=== PATIENT | female | born 1930 | race Caucasian/White ===

== ENCOUNTER 2017-06-04 22:29 | Inpatient (IN) ==
[2017-06-04] MEDS ORDERED: NS 500 ML IV ONE (22:55)
--- NOTE | 2017-06-04 23:16 | PROVIDER DOCUMENTATION ---
HPI-General Adult - General Chief Complaint: Weakness Stated Complaint: sudden onset weakness Time Seen by Provider: 06/04/17 22:35 Source: EMS Unable to obtain history due to:: altered Allergies/Adverse Reactions: Patient Allergies Allergy/AdvReac Type Severity Reaction Status Date / Time No Known Allergies Allergy Verified 06/04/17 23:41 Home Medications: Home Medication List Medication Instructions Recorded Confirmed Last Taken Type Buspirone [Buspar] 10 mg PO BID 12/25/14 08/13/16 04/29/15 18:00 History Donepezil [Aricept] 10 mg PO QHS 12/25/14 08/13/16 07/18/15 History Gabapentin 100 mg PO QHS 12/25/14 08/13/16 07/18/15 History Metoclopramide HCl [Reglan] 5 mg PO BID 12/25/14 08/13/16 07/19/15 06:00 History Duloxetine [Cymbalta] 60 mg PO DAILY #0 02/02/15 08/13/16 07/19/15 06:00 Rx Trospium Chloride 20 mg PO BID 07/19/15 08/13/16 07/19/15 06:00 History Quetiapine [Seroquel] 12.5 mg PO QHS #0 tablet 07/24/15 08/13/16 Unknown Rx Pantoprazole [Protonix] 40 mg PO DAILY@0700 06/15/16 08/13/16 Unknown History Tamsulosin HCl 0.4 mg PO QHS 06/15/16 08/13/16 Unknown History ATORVAstatin [Lipitor] 80 mg PO QHS #0 tablet 06/19/16 08/13/16 Unknown Rx Clopidogrel [Plavix] 75 mg PO DAILY #0 tablet 06/19/16 08/13/16 Unknown Rx - History of Present Illness -Gen Adult Nature of Presenting Problems: PER EMS REPORT, PT WITH INCREASING WEAKNESS STARTING TODAY. SON WAS AT HOME WITH PT, STATED PT USUALLY GETS AROUND WITH WALKER BUT TODAY HAS BEEN UNABLE. HX OF DEMENTIA. PT DENIES ANY PAIN OR COMPLAINTS, NO FAMILY AVAILABLE AT PRESENT IN ER TO CONFIRM HX OR CURRENT PROBLEMS. Location of Pain/Injury: reports: none Review of Systems - Adult - REVIEW OF SYSTEMS - ADULT ROS:: limited per condition Constitutional: reports: no symptoms reported. denies: fever Eyes: reports: no symptoms reported Ears, Nose, Mouth & Throat: reports: no symptoms reported Cardiovascular: reports: no symptoms reported. denies: chest pain Respiratory: reports: no symptoms reported. denies: shortness of breath Gastrointestinal: reports: no symptoms reported. denies: diarrhea, vomiting Genitourinary: reports: no symptoms reported Musculoskeletal: reports: see HPI, muscle weakness Integumentary: reports: no symptoms reported Neurological: reports: no symptoms reported Psychiatric: reports: no symptoms reported Endocrine: reports: no symptoms reported Hematologic/Lymphatic: reports: no symptoms reported Allergic/Immunologic: reports: no symptoms reported All Other Systems: Reviewed and Negative Past History - Adult - PAST MEDICAL HISTORY-ADULT Review of Records: reports: Nursing Assessment Review, Medications Reviewed, Social history reviewed & non-contributory. Major Childhood Illnesses: reports: denies history Cardiovascular: reports: CAD, HTN, hyperlipidemia, MD Gastrointestinal: reports: GERD Musculoskeletal: reports: other (NEUROPATHY) Neurological: reports: CVA, dementia Psychiatric: reports: depression - PRIOR SURGERIES/PROCEDURES Surgical/Procedure History: reports: hysterectomy, tonsillectomy, orthopedic ( extremity) - IMMUNIZATION STATUS Childhood Immunizations: See Nurse Assessment Flu Vaccine: See Nurse Assessment - FAMILY HISTORY Family History: reviewed, not pertinent Physical Exam-General - PHYSICAL EXAM-ADULT Initial Vital Signs Reviewed: Yes - CONSTITUTIONAL General Appearance: alert, no apparent distress, cachetic - EYES Eyes: other (PINPOINT PUPILS) - HEAD, EARS, NOSE, MOUTH & THROAT HENMT: negative: moist mucous membranes (DRY) - RESPIRATORY Respiratory: lungs clear, normal breath sounds - CARDIOVASCULAR Cardiovascular: regular rate, rhythm - GASTROINTESTINAL (ABDOMEN) Abdominal Exam: non tender, soft. negative: distended, guarding - MUSCULOSKELETAL Extremity: non-tender, normal inspection, normal capillary refill - SKIN Integumentary: normal color, warm/dry. negative: normal turgor (POOR) - NEUROLOGIC Neurologic: grossly normal. negative: aphasia, facial droop - PSYCHIATRIC Psych/Mental Status: normal mood/affect, disoriented x 3 (ORIENTED TO SELF ONLY) Progress - PLAN OF CARE/RESULTS Progress/Plan/Lab Results: Vital Signs - 8 hr 06/04/17 22:43 06/04/17 22:46 Temperature 98.4 F Pulse Rate 59 L 62 Respiratory Rate 16 31 H Blood Pressure 133/61 133/61 O2 Sat by Pulse Oximetry 97 97 Orders Category Date Time Status Cardiac Monitoring DIRECTED Care 06/04/17 22:53 Active Saline Loc NOW Care 06/04/17 22:53 Active CHEST-PORTABLE [RAD] Stat Exams 06/04/17 22:53 Ordered CBC WITH ELECTRONIC DIFF [HEME] Stat Lab 06/04/17 22:53 Uncollected CK PROFILE [SP CHEM] Stat Lab 06/04/17 22:53 Uncollected COMPREHENSIVE METABOLIC PANEL [CHEM] Stat Lab 06/04/17 22:53 Uncollected LACTATE, PLASMA [CHEM] Stat Lab 06/04/17 22:53 Uncollected PROTIME WITH INR [COAG] Stat Lab 06/04/17 22:53 Uncollected PTT [COAG] Stat Lab 06/04/17 22:53 Uncollected TROPONIN T Stat Lab 06/04/17 22:53 Uncollected URINALYSIS W/POSS RFLX CULT-1 [URINALYSIS] Stat Lab 06/04/17 22:53 Uncollected 0.9% Sodium Chloride Inj [Ns] 500 ml Med 06/04/17 22:55 Active IV 999 mls/hr Pulse Oximetry Stat Oth 06/04/17 22:53 Active EKG [EKG] Stat Ther 06/04/17 22:53 Ordered DISCUSSED PT HX, EXAM, AND LABS WITH DR. RAM WHO ADVISES TO D/C HOME. Result Diagrams: 06/04/17 23:35 06/04/17 23:35 - XRAY 1 XRAY Study: Chest Impression: Normal Comparison with other Films: no changes XRAY Interpretation: NO ACUTE CHANGES PER DR. RAM Departure - Departure Date of Disposition Decision: 06/05/17 Time of Disposition Decision: 01:05 DIAGNOSIS: Weakness generalized Disposition: ADMITTED INPATIENT 09 Certified Medical Emergency: Emergent Condition: Good Additional Freetext Instructions: FOLLOW-UP WITH YOUR PRIMARY CARE PROVIDER TOMORROW. ED Follow Up Instructions: You have been treated by a care provider in the Emergency Department. These instructions are being provided to you so you can have an understanding of how to care for yourself upon discharge. Upon discharge from the Emergency Department, you are responsible for making arrangements for follow-up care by a physician of your choice. Take all prescribed medications as directed. Return to the Emergency Department immediately for any new or worsening symptoms. You may call the Physician Referral phone number at [phone] to obtain a list of Physicians who are taking new patients. Referrals and Follow-Ups: Tali Enrst MD [ACTIVE STAFF PHYSICIAN] - - Critical Care Note This patient required my direct & personal management of CC.: No Attestation - Physician/ ANDERSON Attestation Patient care was provided by Advanced Practice Provider:: Yes Advanced Practice Provider:: Riri Walton Advanced Practice Provider documentation review:: The Mid-level provider documentation, treatment plan and medical decision making was reviewed by the physician who agrees with all treatment and medical decision making by the MLP. The physician spent face to face time with patient:: No Advanced Practice Provider documentation review:: Supervising physician onsite and consulted in the evaluation and care of this patient. The physician did not have a face to face encounter with the patient.
[2017-06-04 23:48] LABS: MANUAL DIFF NEEDED? NO
[2017-06-04 23:55] LABS: BASO% 0.3 % (0.0-0.8); EOS# 0.13 X1000 (0.0-0.7); EOS% 1.8 % (0.0-10.0); HEMATOCRIT 40.3 % (37.0-47.0); HEMOGLOBIN 13.5 g/dL (12.0-16.0); IMM GRAN# 0.02 X1000 (0.0-0.04); IMM GRAN% 0.3 % (0.0-0.5); LYMPH# 1.76 X1000 (1.2-3.4); LYMPH% 24.9 % (20.5-51.1); MCH 31.6 PG (27-31); MCHC 33.5 g/dL (33-37); MCV 94.4 FL (81-99); MONO# 0.84 X1000 (0.11-0.59); MONO% 11.9 % (1.7-9.3); MPV 11.9 FL (7.4-10.4); NEUT% 60.8 % (42.2-75.2); PLT 235 X1000 (130-400); RBC 4.27 XMIL (4.2-5.4)
[2017-06-05 00:06] LABS: INR 1.07; PROTIME 11.3 Seconds (9.2-11.7); PTT 24.6 Seconds (22.0-36.0)
[2017-06-05 00:17] LABS: AGAP 14; ALBUMIN 3.5 g/dL (3.5-5.0); ALKALINE PHOSPHATASE 111 U/L (32-104); BUN 16 mg/dL (8-22); CALCIUM 9.6 mg/dL (8.8-10.2); CHLORIDE 106 mmol/L (98-107); CK PROFILE 75 U/L (24-173); COSMO 285; GOT 13 U/L (10-30); GPT 11 U/L (10-36); POTASSIUM 3.5 mmol/L (3.5-5.1); SODIUM 143 mmol/L (136-145); TCO2 23 mmol/L (25-35); TOTAL BILIRUBIN 0.38 mg/dL (0.20-1.00); TOTAL PROTEIN 5.9 g/dL (6.3-8.3)
[2017-06-05 00:36] LABS: URINE CULTURE NEEDED? NO; URINE MICRO REVIEW NEEDED? NO; URINE SOURCE CATH
[2017-06-05 00:38] LABS: BILIRUBIN URINE NEGATIVE (NEGATIVE); BLOOD URINE NEGATIVE (NEGATIVE); COLOR YELLOW; GLUCOSE URINE NEGATIVE (NEGATIVE); LEUKOCYTES URINE NEGATIVE (NEGATIVE); NITRITE URINE NEGATIVE (NEGATIVE); PH URINE 6.5; PROTEIN URINE TRACE mg/dL (NEGATIVE); SP GRAVITY URINE 1.016; TURBIDITY URINE CLEAR (CLEAR); UROBILINOGEN URINE NORMAL (NORMAL)
[2017-06-05 00:39] LABS: UR EPITHELIAL CELLS <10 /HPF (<10); URINE BACTERIA NEGATIVE /HPF; URINE RBC <10 /HPF (<10); URINE WBC <10 /HPF (<10)
--- NOTE | 2017-06-05 01:34 | ED EKG INTERP ---
This chart was entered by Angely Balbuena Scribe, acting as scribe for Stephen Zarate MD. EKG Interpretation - EKG Time of EKG reading by physician:: 23:05 EKG Read and Signed by:: Stephen Zarate EKG Interpretation (*Must complete 3 of following elements*): Normal Rate: 61 Rhythm: NSR Comments: Abnormal ECG, Prolonged QT Attestation - Physician/ ANDERSON Attestation The physician spent face to face time with patient:: Yes Advanced Practice Provider documentation review:: Supervising physician onsite and consulted in the evaluation and care of this patient. The physician did have a face to face encounter with the patient. This chart was documented by the indicated scribe, (Angely Balbuena Scribe) and accurately reflects the services I performed and decisions made by me, Stephen Zarate MD, as attested by the provider's signature.
[2017-06-05] MEDS ORDERED: ZOFRAN IV PRN (03:02)
[2017-06-05] MEDS: NS 1,000 ML IV SCH (04:39)
--- NOTE | 2017-06-05 05:39 | HISTORY AND PHYSICAL ---
PRIMARY CARE PHYSICIAN: Unknown. CHIEF COMPLAINT: Weakness. HISTORY OF PRESENTING ILLNESS: An 87-year-old elderly female with a history of dementia, hypertension, CVA, GERD and coronary artery disease was brought to the emergency department by her son due to patient having worsening weakness. At the time of my examination, there were no family members around. The patient was not really verbal and very hard of hearing. Most of the history is obtained from previous medical records. At the current time as discussed, patient is a poor historian. PAST MEDICAL HISTORY: Includes dementia, hypertension, CVA, GERD and coronary artery disease. PAST SURGICAL HISTORY: Coronary bypass and L2 kyphoplasty. ALLERGIES: No known drug allergies. CURRENT MEDICATIONS: As listed in the medication reconciliation sheet. SOCIAL HISTORY: Patient lives with her son. No history of smoking, alcohol or illicit drug use. FAMILY HISTORY: No history of coronary disease. REVIEW OF SYSTEMS: Unable to obtain due to patient's current status. PHYSICAL EXAMINATION: GENERAL: Frail ill-looking elderly female. She is without any respiratory distress. VITAL SIGNS: Temperature 98.3 degrees, pulse 91, respirations 17 and blood pressure 131/62. HEENT: Atraumatic, normocephalic. PERRLA. NECK: No masses. CHEST: Clear to auscultation. CARDIOVASCULAR: Regular rate and rhythm. ABDOMEN: Soft. Positive bowel sounds. EXTREMITIES: No edema. NEUROLOGIC: She is awake and arousable. : No bladder distention. SKIN: Decubitus on her sacral region. LABORATORIES AND STUDIES: WBC's 7.08, hemoglobin 13.5, hematocrit 40.3, platelets 235,000. Sodium 143, potassium 3.5, chloride 106, CO2 23, BUN 16, creatinine 0.8, glucose 86. Plasma lactate 0.02. Urine negative for nitrites. Negative for bacteria. ASSESSMENT: An 87-year-old elderly frail woman with a history of dementia, hypertension, CVA, GERD and coronary artery disease who was brought to the emergency department due to worsening weakness. Due to her present condition, she will need admission for further management. 1. Generalized weakness. 2. Failure to thrive. 3. Sacral decubitus stage 2. 4. Dementia. 5. Hypertension. PLAN: 1. We will admit patient to medical floor with telemetry. 2. Continue supportive treatment with gentle hydration. 3. We will continue with the wound care for decubitus. 4. We will restart her home medications. 5. Monitor blood pressure closely. 6. We will put patient on DVT prophylaxis and SCD's. 7. We will consult social service for assessment with possible placement. 8. We will continue to follow and reassess. cc: Manuel Maravilla MD
--- NOTE | 2017-06-05 06:52 | EKG Report ---
Test Performed on : 06/04/2017 11:05:23 PM Test Reason : AMS Blood Pressure : / mmHG Vent. Rate : 061 BPM Atrial Rate : 061 BPM P-R Int : 164 ms QRS Dur : 082 ms QT Int : 478 ms P-R-T Axes : 043 -21 242 degrees QTc Int : 481 ms Normal sinus rhythm. ST \T\ T wave abnormality, consider anterolateral ischemia Prolonged QT Abnormal ECG When compared with ECG of 14-AUG-2016 07:09, Vent. rate has decreased BY 35 BPM Nonspecific T wave abnormality now evident in Inferior leads T wave inversion now evident in Lateral leads Unconfirmed Result
--- NOTE | 2017-06-05 07:27 | Diag Imaging Result Doc PS360 ---
CHEST-PORTABLE - 06/04/2017 INDICATION: AMS TECHNIQUE: COMPARISON: 08/13/2016 FINDINGS: The lungs are normally expanded and clear. Heart size and mediastinal contours are normal. No pneumothorax or pleural effusion. IMPRESSION: Negative exam. Electronically signed by Yousif Sawyer 06/05/2017 7:25 AM
[2017-06-05] MEDS: PLAVIX PO SCH (08:30)
[2017-06-05] MEDS: PROTONIX PO SCH (08:30)
[2017-06-05] MEDS: BUSPAR PO SCH ×2 (08:30→23:14)
[2017-06-05] MEDS: CYMBALTA PO SCH (08:30)
[2017-06-05] MEDS: REGLAN PO SCH ×2 (08:30→23:14)
--- NOTE | 2017-06-05 20:44 | PROGRESS NOTE ---
DATE: 06/05/2017 Briefly 87-year-old female with looks like significant dementia comes in for failure to thrive essentially. She has had progressive weakness, not sure where she came in from home, I do not know how she has been managing self-care because she is significantly demented. She apparently has a significant decubitus ulcer. We will continue to monitor her and support her. No evidence of urinary tract infection or any major metabolic abnormality. She has not gotten a head CT with her confusion so I am going to go ahead and repeat that. Her chest x-ray is negative. Obviously she cannot take care of herself and she is a high fall risk. She has decubitus already so she will likely need some sort of long-term care. We are going to work on establishing that if possible. I will check 2nd order, altered mental status labs to evaluate for any other pathology. cc: Marky Cespedes MD
--- NOTE | 2017-06-05 22:09 | Diag Imaging Result Doc PS360 ---
EXAM: CT HEAD W/O CONTRAST INDICATION: encephalopathy TECHNIQUE: Dose reduction protocol was used. COMPARISON: 08/13/2016 FINDINGS: There is diffuse brain atrophy. There is extensive patchy low attenuation in the periventricular and subcortical white matter suggesting advanced microangiopathy, stable. There is stable focal encephalomalacia involving the left occipital lobe. There is no definite acute infarct given the limited sensitivity of CT versus MRI. There is no discrete intracranial mass, mass effect, or intracranial hemorrhage. There is chronic left maxillary sinusitis that is stable with subtotal opacification of the left maxillary sinus. Surrounding soft tissues and bony structures are essentially unremarkable, otherwise. IMPRESSION: Advanced chronic changes that are stable but no definite acute intracranial pathology. Electronically signed by Darion Jonas 06/05/2017 10:07 PM
[2017-06-05] MEDS: ARICEPT PO SCH (23:15)
[2017-06-05] MEDS: NEURONTIN PO SCH (23:15)
[2017-06-05] MEDS: DITROPAN XL PO SCH (23:15)
[2017-06-05] MEDS: FLOMAX PO SCH (23:15)
[2017-06-06] MEDS: NS 1,000 ML IV SCH ×2 (05:03→16:26)
[2017-06-06 06:13] LABS: HEMATOCRIT 37.4 % (37.0-47.0); HEMOGLOBIN 12.5 g/dL (12.0-16.0); MCH 31.6 PG (27-31); MCHC 33.4 g/dL (33-37); MCV 94.4 FL (81-99); MPV 12.4 FL (7.4-10.4); RBC 3.96 XMIL (4.2-5.4)
[2017-06-06 06:38] LABS: AGAP 9; ALBUMIN 2.9 g/dL (3.5-5.0); ALKALINE PHOSPHATASE 100 U/L (32-104); BUN 12 mg/dL (8-22); CALCIUM 8.8 mg/dL (8.8-10.2); CHLORIDE 105 mmol/L (98-107); COSMO 275; GOT 12 U/L (10-30); GPT 10 U/L (10-36); POTASSIUM 2.9 mmol/L (3.5-5.1); SODIUM 138 mmol/L (136-145); TCO2 24 mmol/L (25-35); TOTAL BILIRUBIN 0.29 mg/dL (0.20-1.00); TOTAL PROTEIN 5.7 g/dL (6.3-8.3)
[2017-06-06] MEDS: PROTONIX PO SCH (06:53)
[2017-06-06] MEDS: BUSPAR PO SCH ×2 (10:01→21:56)
[2017-06-06] MEDS: CYMBALTA PO SCH (10:01)
[2017-06-06] MEDS: REGLAN PO SCH ×2 (10:02→21:56)
[2017-06-06] MEDS: PLAVIX PO SCH (10:02)
[2017-06-06] MEDS ORDERED: KLOR-CON PO ONE (12:27)
[2017-06-06] MEDS ORDERED: POTASSIUM CHLORIDE 20 MEQ/SWI 20 MEQ/100 ML IVPB IV SCH (13:00)
[2017-06-06] MEDS ORDERED: POTASSIUM CHLORIDE 20% LIQUID PO ONE ×2 (16:11→21:00)
[2017-06-06] MEDS: FOLIC ACID 1 MG in NS 50 ML IV SCH (16:24)
[2017-06-06] MEDS ORDERED: NS 1,000 ML IV SCH (17:16)
--- NOTE | 2017-06-06 18:14 | PROGRESS NOTE ---
DATE: 06/06/2017 SUBJECTIVE: Patient has no focal complaints, still seems pleasantly complete. OBJECTIVE: Vital signs: Blood pressure 94/48, heart rate 69, respiratory 22, temperature 97.2. General: Well-developed female in no acute distress. Cardiovascular: Regular rate and rhythm. Pulmonary: Bilateral breath sounds. Clear to auscultation. GI: Soft, nontender, nondistended. Bowel sounds are positive. LAB: Hemoglobin and hematocrit 12 and 37, white count normal, potassium 2.9, folate was low at 6.5. PROBLEM LIST: 1. Encephalopathy likely related to confusion, progressive dementia. We will continue to follow. There is no major infection or anything noted. 2. Hypokalemia. We will supplement and follow. Check magnesium levels. 3. Folate deficiency. We will supplement and follow. DISPOSITION: Patient is unable to take care of herself. High fall risk, high failure to thrive risk. We will look into physical therapy evaluate her gait and stance, discuss with the family about discharge options including hospice, home health and rehab. cc: Marky Cespedes MD
[2017-06-06] MEDS: ARICEPT PO SCH (21:56)
[2017-06-06] MEDS: FLOMAX PO SCH (21:56)
[2017-06-06] MEDS: DITROPAN XL PO SCH (21:56)
[2017-06-06] MEDS: NEURONTIN PO SCH (21:56)
[2017-06-07] MEDS ORDERED: NS 1,000 ML IV ONE (04:59)
[2017-06-07] MEDS ORDERED: NS 1,000 ML IV SCH (05:01)
[2017-06-07 06:20] LABS: HEMATOCRIT 36.9 % (37.0-47.0); HEMOGLOBIN 12.2 g/dL (12.0-16.0); MCH 31.9 PG (27-31); MCHC 33.1 g/dL (33-37); MCV 96.6 FL (81-99); MPV 12.3 FL (7.4-10.4); RBC 3.82 XMIL (4.2-5.4)
[2017-06-07 06:35] LABS: AGAP 10; BUN 14 mg/dL (8-22); CALCIUM 8.6 mg/dL (8.8-10.2); CHLORIDE 109 mmol/L (98-107); COSMO 279; MAGNESIUM 1.7 mg/dL (1.5-2.7); POTASSIUM 5.1 mmol/L (3.5-5.1); SODIUM 140 mmol/L (136-145); TCO2 21 mmol/L (25-35)
[2017-06-07] MEDS: FOLIC ACID 1 MG in NS 50 ML IV SCH (07:59)
[2017-06-07] MEDS: PROTONIX PO SCH (08:01)
[2017-06-07] MEDS: PLAVIX PO SCH (09:47)
[2017-06-07] MEDS: BUSPAR PO SCH ×2 (09:47→20:10)
[2017-06-07] MEDS: CYMBALTA PO SCH (09:47)
[2017-06-07] MEDS: REGLAN PO SCH ×2 (09:48→20:10)
[2017-06-07] MEDS: NEURONTIN PO SCH (20:10)
[2017-06-07] MEDS: FLOMAX PO SCH (20:10)
[2017-06-07] MEDS: ARICEPT PO SCH (20:10)
[2017-06-07] MEDS: DITROPAN XL PO SCH (20:10)
--- NOTE | 2017-06-08 02:55 | PROGRESS NOTE ---
DATE: 06/08/2017 SUBJECTIVE: Patient appears to be better, no major issues. OBJECTIVE: Vital Signs: Blood pressure 136/54, heart rate 62, respiratory rate 24, 97.1 temperature. Cardiovascular: Regular rate and rhythm. Pulmonary: Bilateral breath sounds clear to auscultation. GI: Soft, nontender, nondistended. Bowel sounds are positive. Laboratory Data: Unremarkable. IMPRESSION AND PLAN: 1. Encephalopathy, appears to be stable. 2. Hypokalemia. Supplement and follow. 3. Folate deficiency. Follow. 4. Disposition. Planning for possible rehab versus long-term care. We will continue to monitor. cc: Marky Cespedes MD
[2017-06-08 05:42] LABS: MANUAL DIFF NEEDED? NO
[2017-06-08] MEDS: FOLIC ACID 1 MG in NS 50 ML IV SCH (05:47)
[2017-06-08] MEDS: PROTONIX PO SCH ×2 (05:47→09:26)
[2017-06-08 05:48] LABS: BASO% 0.4 % (0.0-0.8); EOS# 0.22 X1000 (0.0-0.7); EOS% 2.9 % (0.0-10.0); HEMATOCRIT 37.4 % (37.0-47.0); HEMOGLOBIN 12.4 g/dL (12.0-16.0); LYMPH# 1.66 X1000 (1.2-3.4); LYMPH% 22.1 % (20.5-51.1); MCH 31.8 PG (27-31); MCHC 33.2 g/dL (33-37); MCV 95.9 FL (81-99); MONO# 1.01 X1000 (0.11-0.59); MONO% 13.5 % (1.7-9.3); MPV 12.1 FL (7.4-10.4); NEUT% 61.1 % (42.2-75.2); PLT 224 X1000 (130-400)
[2017-06-08 06:06] LABS: AGAP 10; BUN 16 mg/dL (8-22); CALCIUM 9.4 mg/dL (8.8-10.2); CHLORIDE 107 mmol/L (98-107); COSMO 276; MAGNESIUM 1.8 mg/dL (1.5-2.7); POTASSIUM 4.9 mmol/L (3.5-5.1); SODIUM 138 mmol/L (136-145); TCO2 21 mmol/L (25-35)
[2017-06-08] MEDS: BUSPAR PO SCH ×2 (09:26→20:02)
[2017-06-08] MEDS: CYMBALTA PO SCH (09:27)
[2017-06-08] MEDS: PLAVIX PO SCH (09:29)
[2017-06-08] MEDS: REGLAN PO SCH (09:30)
--- NOTE | 2017-06-08 17:53 | PROGRESS NOTE ---
DATE: 06/08/2017 SUBJECTIVE: Patient is sleeping quietly. No major issues. OBJECTIVE: Vital signs: Blood pressure 126/65, heart rate of 95, respiratory 18, temperature 98.4 degrees, 99% on room air. Cardiovascular: Regular rate and rhythm. Pulmonary: Bilateral breath sounds. Clear to auscultation. GI: Soft, nontender, nondistended. Bowel sounds are positive. CURRENT DATA: White count 7. CMP was normal. PROBLEM LIST: 1. Failure to thrive. We will continue dietary supplementation, work on improving nutritional status. She seems to be doing okay. 2. Hypokalemia. That has improved with supplementation. 3. Folic acid deficiency. We will continue treatment and follow. She is on Reglan, but has distinctly some akathisia. I am going to hold her Reglan and see how she does. I think we can switch her folic acid to p.o. DISPOSITION: Pending her clinical status, she may need rehab just because of her very poor functional status, high risk for falls and injury if she is not monitored. cc: Marky Cespedes MD
[2017-06-08] MEDS: FLOMAX PO SCH (20:02)
[2017-06-08] MEDS: NEURONTIN PO SCH (20:02)
[2017-06-08] MEDS: DITROPAN XL PO SCH (20:03)
[2017-06-08] MEDS: ARICEPT PO SCH (20:03)
[2017-06-09 05:46] LABS: MANUAL DIFF NEEDED? NO
[2017-06-09 05:51] LABS: BASO% 0.5 % (0.0-0.8); EOS% 2.4 % (0.0-10.0); HEMATOCRIT 35.9 % (37.0-47.0); HEMOGLOBIN 11.8 g/dL (12.0-16.0); LYMPH# 2.38 X1000 (1.2-3.4); MCH 31.7 PG (27-31); MCHC 32.9 g/dL (33-37); MCV 96.5 FL (81-99); MONO# 1.03 X1000 (0.11-0.59); MONO% 12.1 % (1.7-9.3); MPV 11.7 FL (7.4-10.4); PLT 230 X1000 (130-400); RBC 3.72 XMIL (4.2-5.4)
[2017-06-09 06:13] LABS: AGAP 9; BUN 21 mg/dL (8-22); CALCIUM 9.1 mg/dL (8.8-10.2); CHLORIDE 105 mmol/L (98-107); COSMO 278; POTASSIUM 4.6 mmol/L (3.5-5.1); SODIUM 138 mmol/L (136-145); TCO2 24 mmol/L (25-35)
[2017-06-09] MEDS: PROTONIX PO SCH (06:14)
[2017-06-09] MEDS: CYMBALTA PO SCH (08:46)
[2017-06-09] MEDS: FOLIC ACID PO SCH (08:46)
[2017-06-09] MEDS: BUSPAR PO SCH ×2 (08:46→20:15)
[2017-06-09] MEDS: PLAVIX PO SCH (08:47)
--- NOTE | 2017-06-09 14:03 | PROGRESS NOTE ---
DATE: 06/09/2017 SUBJECTIVE: Today Ms. Tinajero continues to nonverbal. She was lying down. Per the nursing staff, there has not been any changes in her condition. OBJECTIVE: Vital signs: Blood pressure is 126/56, pulse of 55, respirations 16, temperature is 98.4 degrees. General: Ms. Tinajero is an 87-year-old female. She is in bed. Does not seem to be in any distress. HEENT: Mucosa is pink and moist. Anicteric. Acyanotic. Neck: Supple. Chest: Clear. Cardiovascular: Regular rate and rhythm. Abdomen: Soft. Extremities: No pedal edema. INSURANCE PROCESSING CLERK: Patient is awake but nonverbal. Moves extremities to painful stimulation. Does not seem to understand anything. LABORATORY DATA: Has been reviewed. Chemistry is completely unremarkable. Vitamin D is 16.5. Folate is 6.5. CBC is reviewed and is unremarkable. ASSESSMENT: 1. Failure to thrive. 2. Generalized weakness and deconditioning with multiple falls at home. 3. Folate and vitamin D deficiencies. 4. Hypokalemia, improved. PLAN: So in general, I think Ms. Tinajero is clinically stable. I think she has generalized weakness and deconditioning because of her age. I understand she will be going to rehab. We are pending the response from [facility] to get her there. cc: Philippe Leyva MD
[2017-06-09] MEDS ORDERED: MILK OF MAGNESIA PO ONE (17:10)
[2017-06-09] MEDS: DITROPAN XL PO SCH (20:15)
[2017-06-09] MEDS: ARICEPT PO SCH (20:15)
[2017-06-09] MEDS: FLOMAX PO SCH (20:15)
[2017-06-09] MEDS: NEURONTIN PO SCH (20:15)
[2017-06-10 05:30] LABS: MANUAL DIFF NEEDED? NO
[2017-06-10 05:34] LABS: BASO% 0.4 % (0.0-0.8); EOS# 0.18 X1000 (0.0-0.7); EOS% 2.5 % (0.0-10.0); HEMATOCRIT 35.4 % (37.0-47.0); HEMOGLOBIN 11.7 g/dL (12.0-16.0); LYMPH# 2.22 X1000 (1.2-3.4); LYMPH% 30.9 % (20.5-51.1); MCH 31.8 PG (27-31); MCHC 33.1 g/dL (33-37); MCV 96.2 FL (81-99); MONO# 0.92 X1000 (0.11-0.59); MONO% 12.8 % (1.7-9.3); MPV 11.8 FL (7.4-10.4); NEUT% 53.4 % (42.2-75.2); PLT 262 X1000 (130-400); RBC 3.68 XMIL (4.2-5.4)
[2017-06-10] MEDS: PROTONIX PO SCH ×2 (05:35→06:24)
[2017-06-10 06:04] LABS: AGAP 9; BUN 22 mg/dL (8-22); CALCIUM 9.3 mg/dL (8.8-10.2); CHLORIDE 106 mmol/L (98-107); COSMO 284; MAGNESIUM 2.3 mg/dL (1.5-2.7); SODIUM 141 mmol/L (136-145); TCO2 26 mmol/L (25-35)
[2017-06-10] MEDS: CYMBALTA PO SCH (09:04)
[2017-06-10] MEDS: BUSPAR PO SCH ×2 (09:04→21:14)
[2017-06-10] MEDS: VITAMIN D PO SCH (09:04)
[2017-06-10] MEDS: PLAVIX PO SCH (09:04)
[2017-06-10] MEDS: FOLIC ACID PO SCH (09:04)
--- NOTE | 2017-06-10 11:16 | DISCHARGE SUMMARY ---
ADMISSION DATE: 06/06/2017 DISCHARGE DATE: 06/11/2017 CONSULTATIONS: None. PERTINENT PROCEDURES: 1. Head CT showed advanced chronic changes that are stable but no definite acute intracranial pathology. 2. Chest CT was a negative exam. DISCHARGE DIAGNOSES: 1. Failure to thrive. 2. Generalized weakness and deconditioning with multiple falls at home. The patient has worked with physical therapy and will be discharged to [facility] rehab. 3. Folate and vitamin D deficiency. We will continue with supplementation, encourage p.o. intake as well as supplementation with Ensure. 4. Hypokalemia resolved. 5. Sacral decubitus stage 2 on arrival. 6. Encephalopathy likely related to progressive dementia. No sign or symptom of infection. Improved. HOSPITAL COURSE: Ms. Tinajero is an 87-year-old female with a history of dementia , hypertension, CVA, GERD, coronary artery disease, was brought to the ED department by her son for having worsening weakness. At the time of the initial physician examination there was no family members at the bedside. The patient was not really verbal and very hard of hearing. Most of the initial information was obtained from previous medical records. Laboratory data showed a white count 7, hemoglobin 13, hematocrit 40, platelet count 235,000. Sodium 143, potassium 3.5 , chloride 106, CO2 22, BUN 16, creatinine 0.9. Blood glucose 86, plasma lactate 0.02. Urine was negative for nitrates. Negative for bacteria. CT of the head showed advanced chronic changes that are stable but no acute intracranial pathology. Chest x-ray, stable. She was admitted for generalized weakness and failure to thrive, dementia. She was started on supportive treatment with gentle hydration, wound care for her decubitus on arrival. Restarted her home medications and a consult for social worker delinquency prevention for rehab placement. She has worked with physical therapy. We have given vitamin and mineral supplementation as well as Ensure to her meals. Clinically, she has remained stable throughout her hospital stay, mentations is at baseline. She does have a bed at [facility] today and will be discharged there. Vital signs: Temperature is 97.6 degrees, heart rate 70 respirations 18, blood pressure 126/66, O2 is 97% on room air. DISCHARGE DIET: GI soft, Ensure with each meal. DISCHARGE MEDICATIONS: 1. BuSpar 10 mg p.o. b.i.d. 2. Vitamin D3 2000 units p.o. daily. 3. Plavix 75 mg p.o. daily. 4. Aricept 10 mg p.o. at bedtime. 5. Cymbalta 60 mg p.o. daily. 6. Folic acid 1 mg p.o. daily. 7. Gabapentin 100 mg p.o. at bedtime. 8. Milk of magnesia 30 mL p.o. at bedtime p.r.n. 9. Oxybutynin chloride 10 mg p.o. at bedtime. 10. Protonix 40 mg p.o. daily. 11. Flomax 0.4 mg p.o. at bedtime. DISPOSITION: Ms. Tinajero is being discharged to [facility] rehab. FOLLOWUP: She will need to follow up with her primary care physician, Dr. Ernst in 7-10 days. She can return to the ED for any worsening of symptoms. Dictated by SAVI Alvarez for Philippe Leyva MD cc: MD Tali Knutson MD Due to bed issues at the rehab center, patient was finally discharged on 2016 in stable condition Time spent foe discharge 32 minutes. MTDD
--- NOTE | 2017-06-10 15:52 | PROGRESS NOTE ---
DATE: 06/10/2017 SUBJECTIVE: Today Ms. Tinajero continues to be nonverbal. Clinically stable. No changes overnight. OBJECTIVE: Vitals: Vitals have been reviewed. Blood pressure is 126/66, pulse of 70, respiration 18, temperature 97.6 degrees, patient is saturating 97% on room air. General: Ms. Tinajero is an 87-year-old very frail female. She is in bed and did not seem to be in any distress. HEENT: Mucosa is pink and moist. Anicteric. Acyanotic. Neck: Supple. Chest: Clear. Cardiovascular: Regular rate and rhythm. TAX PREPARER: Patient is awake, but nonverbal, moves extremities to painful stimulation. LABORATORY DATA: Reviewed. WBC 7.19, hemoglobin is 11.7, platelet count of 256,000. Chemistry is reviewed and is completely normal. ASSESSMENT: 1. Adult failure to thrive. 2. Generalized weakness and deconditioning with multiple falls at home. 3. Folate and vitamin D deficiencies. We will continue to replace. 4. Hypokalemia, improved. PLAN: So today, Ms. Tinajero was actually discharged early on. However, I understand there is no bed at [facility] and we would have to wait till tomorrow before she can go. cc: Philippe Leyva MD
[2017-06-10] MEDS ORDERED: MILK OF MAGNESIA PO PRN (21:00)
[2017-06-10] MEDS: FLOMAX PO SCH (21:14)
[2017-06-10] MEDS: ARICEPT PO SCH (21:14)
[2017-06-10] MEDS: DITROPAN XL PO SCH (21:14)
[2017-06-10] MEDS: NEURONTIN PO SCH (21:14)
[2017-06-11 05:50] LABS: MANUAL DIFF NEEDED? NO
[2017-06-11 06:03] LABS: BASO% 0.4 % (0.0-0.8); EOS# 0.24 X1000 (0.0-0.7); EOS% 3.2 % (0.0-10.0); HEMATOCRIT 32.3 % (37.0-47.0); HEMOGLOBIN 10.8 g/dL (12.0-16.0); IMM GRAN# 0.02 X1000 (0.0-0.04); IMM GRAN% 0.3 % (0.0-0.5); LYMPH# 1.99 X1000 (1.2-3.4); LYMPH% 26.5 % (20.5-51.1); MCHC 33.4 g/dL (33-37); MCV 95.8 FL (81-99); MONO# 1.03 X1000 (0.11-0.59); MONO% 13.7 % (1.7-9.3); MPV 11.8 FL (7.4-10.4); NEUT% 55.9 % (42.2-75.2); PLT 265 X1000 (130-400); RBC 3.37 XMIL (4.2-5.4)
[2017-06-11] MEDS: PROTONIX PO SCH (06:12)
[2017-06-11 06:46] LABS: AGAP 8; BUN 27 mg/dL (8-22); CALCIUM 8.9 mg/dL (8.8-10.2); CHLORIDE 103 mmol/L (98-107); COSMO 277; MAGNESIUM 2.3 mg/dL (1.5-2.7); POTASSIUM 4.4 mmol/L (3.5-5.1); SODIUM 136 mmol/L (136-145); TCO2 25 mmol/L (25-35)
[2017-06-11 08:18] VITALS: BP 146/75
[2017-06-11] MEDS: BUSPAR PO SCH (09:12)
[2017-06-11] MEDS: FOLIC ACID PO SCH (09:12)
[2017-06-11] MEDS: PLAVIX PO SCH (09:12)
[2017-06-11] MEDS: VITAMIN D PO SCH (09:12)
[2017-06-11] MEDS: CYMBALTA PO SCH (09:12)
== END 2017-06-11 16:06 ==
LOC: ED 22:29 → 4N 22:29 → SUATTDRO 06-05 02:43 → DIRADM 06-09 01:48 → 4N 06-09 01:48
PROVIDERS: ATTEND Internal Medicine